=== PATIENT | male | born 1960 | race Caucasian/White ===

== ENCOUNTER 2018-01-22 09:45 | Day surgery (SDC) | payer OTHER ==
[~2018-01-22] VITALS: Ht 175.3 cm; Wt 78.0 kg
[2018-01-22 10:19] VITALS: BP 132/78
[2018-01-22 18:00] VITALS: BP 108/59
[2018-01-22 18:55] VITALS: BP 115/67
== END 2018-01-22 19:30 | disposition home or self-care (01) ==
LOC: SDC 09:45
DX: S46.011A Strain of muscle(s) and tendon(s) of the rotator cuff of right shoulder, initial encounter (principal); S46.111A Strain of muscle, fascia and tendon of long head of biceps, right arm, initial encounter; X50.0XXA Overexertion from strenuous movement or load, initial encounter; Y93.H9 Activity, other involving exterior property and land maintenance, building and construction
CPT/HCPCS: C1713; J0171; J0690; J1100; J1885; J2250; J2405; J2795; J3010